=== PATIENT | female | born 1995 | race Caucasian/White ===

== ENCOUNTER → 2020-01-26 16:51 | Outpatient (CLI) | payer BC, SELFPAY | PROVIDERS: Visit Provider Nurse Practitioner | DX: J02.9 Acute pharyngitis, unspecified (principal) | CPT/HCPCS: 87070; 87077; 87147; 87186 ==

== ENCOUNTER 2020-10-16 20:57 | Emergency (ER) | payer BC, SELFPAY ==
[2020-10-16 21:04] VITALS: BP 136/68; PULSE 74; RESP 14; TEMP 36.5; O2SAT 100; BMI 33.8
--- NOTE | 2020-10-16 21:08 | DI.RAD.S_ITS ---
PROCEDURE: XR CHEST 1V INDICATIONS: chest pain TECHNIQUE: One view of the chest was acquired. COMPARISON: None. FINDINGS: Surgical changes and devices: None. Lungs and pleura: Lungs are clear. No pleural effusions or pneumothorax. Mediastinum: Mediastinal contours appear normal. Heart size is normal. Bones and chest wall: No suspicious bony lesions. Overlying soft tissues appear unremarkable. IMPRESSION: No acute cardiopulmonary disease. Dictated by: Bouchra Hodgson M.D. on 10/16/2020 at 21:28 Approved by: Bouchra Hodgson M.D. on 10/16/2020 at 21:28
[2020-10-16 21:52] LABS: Add Manual Diff / Slide Review NO; Basophils Absolute Auto 100 /uL (0-100); Basophils Percent Auto 1.2 % (0-2); Eosinophils Absolute Auto 200 /uL (0-450); Hematocrit 38.1 % (36-46); Hemoglobin 13.1 g/dL (12.0-16.0); Lymphocytes Absolute Auto 3800 /uL (1100-4500); Lymphocytes Percent Auto 42.8 % (25-40); Mean Corpuscular HGB Conc 34.5 % (30-36); Mean Corpuscular Volume 87.1 fL (80-100); Monocytes Absolute Auto 500 /uL (0-900); Monocytes Percent Auto 5.5 % (3-14); Neutrophils Absolute Auto 4300 /uL (1500-7000); Neutrophils Percent Auto 48.5 % (50-75); Platelet Count 235 X10^3/uL (150-400); Red Blood Cell Count 4.38 X10^6/uL (4.0-5.2); Red Cell Distribution Width 12.4 % (11.6-14.8); White Blood Cell Count 8.8 X10^3/uL (4.5-11.0)
[2020-10-16 21:58] LABS: Prothrombin Time 11.6 SECONDS (10.1-12.7)
[2020-10-16 22:01] LABS: PTT Partial Thromboplastin Tim 33 SECONDS (26.4-36.2)
[2020-10-16 22:02] LABS: Alanine Aminotransferase 21 IU/L (<35); Albumin 4.4 g/dL (3.5-5.0); Albumin Globulin Ratio 1.5 (1.0-2.8); Alkaline Phosphatase 49 U/L (38-126); Aspartate Aminotransferase 25 IU/L (14-36); BUN Creatinine Ratio 14.1 (6-22); Bilirubin Total 0.2 mg/dL (0.2-1.3); Blood Urea Nitrogen 10 mg/dL (7-17); Calcium 8.8 mg/dL (8.4-10.2); Carbon Dioxide 27 mmol/L (22-32); Chloride 105 mmol/L (98-107); Creatine Kinase 142 U/L (30-135); Estimated Glomerular Filt Rate > 60.0 mL/min (>60); Globulin 2.9 g/dL (1.7-4.1); Glucose 118 mg/dL (70-100); HEMOLYSIS < 15 (0-50); Lipase 111 U/L (23-300); Potassium 3.7 mmol/L (3.4-5.1); Sodium 139 mmol/L (137-145); Total Protein 7.3 g/dL (6.3-8.2)
[2020-10-16 22:13] LABS: Troponin I < 0.012 ng/mL (0.01-0.034)
[2020-10-16 22:15] VITALS: BP 129/75; PULSE 68; RESP 18; O2SAT 99
[2020-10-16 22:17] LABS: CKMB % Relative Index 0.4 % (1.5-5.0)
--- NOTE | 2020-10-16 23:53 | ED.CHESTPAIN ---
HPI - Chest Pain General Chief Complaint: Chest Pain Stated Complaint: chest pain lt arm pain Time Seen by Provider: 10/16/20 23:05 Source: patient Mode of arrival: Ambulatory Limitations: no limitations History of Present Illness HPI narrative: 24-year-old woman presents with left-sided chest pain radiating up into the shoulder in today was going down her arm as well. She describes no orthopnea, dyspnea or diaphoresis with the pain. It is not activity related. She does note that she has had more stressors in her life recently and has just given notice to quit her job. She denies nausea, vomiting, cough, abdominal pain, diarrhea. Related Data Previous Rx's Medication Instructions Recorded amoxicillin 875 mg-potassium 1 tab PO BID #20 tab 01/28/20 clavulanate 125 mg tablet Allergies Allergy/AdvReac Type Severity Reaction Status Date / Time No Known Drug Allergies Allergy Verified 10/16/20 21:06 Review of Systems Review of Systems Narrative: Remainder of complete review of systems is otherwise unremarkable except for that included in the HPI. Patient History Social History Smoking Status: Unknown if ever smoked Smoking Status: Unknown if ever smoked alcohol intake frequency: holidays/special occasions only Substance Use Type: does not use Exam Narrative Exam Narrative: General: Healthy appearing, in no acute distress. Able to give a complete and coherent history. Well-nourished well-developed HEENT: Moist mucous membranes, normal sclera with reactive pupils, Neck: No JVD, supple, moderate trapezius muscle spasm on the left side. Respiratory: Lungs are clear to auscultation, no wheezing no rales no rhonchi. Full and symmetrical air movement Chest: Mild tenderness along the left sternal border at costochondral margins Cardiac: Regular rate and rhythm no murmurs no bruits Abdomen: Soft, nontender, good bowel tones, no flank pain Skin: Warm and dry, no rashes Neurologic: Grossly neurologically intact with no obvious asymmetries or abnormalities Extremities: No trauma, well perfused Psych: Cooperative, appropriate insight and affect Initial Vital Signs Initial Vital Signs: Vital Signs Temperature 97.7 F 10/16/20 21:04 Pulse Rate 74 10/16/20 21:04 Respiratory Rate 14 10/16/20 21:04 Blood Pressure 136/68 10/16/20 21:04 Pulse Oximetry 100 05/13/21 21:04 Course Orders Ordered: ED Orders 10/16/20 21:08 XR chest 1V Stat EKG-12 Lead Stat 10/16/20 21:39 Complete Blood Count AUTO DIFF Stat Comprehensive Metabolic Panel Stat Lipase Stat Partial Thromboplastin Time Stat Prothrombin Time INR Stat Troponin & CK Cardiac Panel Stat Vital Signs Vital signs: Vital Signs - 8 hr 10/16/20 21:04 10/16/20 22:15 10/17/20 00:12 Temperature 97.7 F Pulse Rate 74 68 74 Respiratory Rate 14 18 16 Blood Pressure 136/68 129/75 121/73 Pulse Oximetry 100 99 97 MDM - Chest Pain Medical Records Data Attestation: I reviewed the patient's medical records. Lab Data Attestation: I reviewed the patient's lab results. Result diagrams: 10/16/20 21:39 10/16/20 21:39 Labs: Lab Results 10/16/20 10/16/20 10/16/20 Range/Units 21:39 21:39 21:39 WBC 8.8 (4.5-11.0) X10^3/uL RBC 4.38 (4.0-5.2) X10^6/uL Hgb 13.1 (12.0-16.0) g/dL Hct 38.1 (36-46) % MCV 87.1 (80-100) fL MCH 30.0 (26-34) PG MCHC 34.5 (30-36) % RDW 12.4 (11.6-14.8) % Plt Count 235 (150-400) X10^3/uL Neut % (Auto) 48.5 L (50-75) % Lymph % (Auto) 42.8 H (25-40) % [place] % (Auto) 5.5 (3-14) % Eos % (Auto) 2.0 (2-4) % Baso % (Auto) 1.2 (0-2) % Neut # (Auto) 4300 (8258-6221) /uL Lymph # (Auto) 3800 (3267-8081) /uL [place] # (Auto) 500 (0-900) /uL Eos # (Auto) 200 (0-450) /uL Baso # (Auto) 100 (0-100) /uL PT 11.6 (10.1-12.7) SECONDS INR 1.0 (0.9-1.3) APTT 33 (26.4-36.2) SECONDS Sodium 139 (137-145) mmol/L Potassium 3.7 (3.4-5.1) mmol/L Chloride 105 (98-107) mmol/L Carbon Dioxide 27 (22-32) mmol/L BUN 10 (7-17) mg/dL Creatinine 0.71 (0.52-1.04) mg/dL Estimated GFR > 60.0 (>60) mL/min BUN/Creatinine Ratio 14.1 (6-22) Glucose 118 H (70-100) mg/dL Calcium 8.8 (8.4-10.2) mg/dL Total Bilirubin 0.2 (0.2-1.3) mg/dL AST 25 (14-36) IU/L ALT 21 (<35) IU/L Alkaline Phosphatase 49 (38-126) U/L Total Creatine Kinase 142 H (30-135) U/L CK-MB (CK-2) 0.60 (<2.37) ng/mL CK-MB (CK-2) Rel Index 0.4 L (1.5-5.0) % Troponin I < 0.012 (0.01-0.034) ng/mL Total Protein 7.3 (6.3-8.2) g/dL Albumin 4.4 (3.5-5.0) g/dL Globulin 2.9 (1.7-4.1) g/dL Albumin/Globulin Ratio 1.5 (1.0-2.8) Lipase 111 (23-300) U/L Imaging Data Chest x-ray: Radiologist's Impression: FINDINGS: Surgical changes and devices: None. Lungs and pleura: Lungs are clear. No pleural effusions or pneumothorax. Mediastinum: Mediastinal contours appear normal. Heart size is normal. Bones and chest wall: No suspicious bony lesions. Overlying soft tissues appear unremarkable. IMPRESSION: No acute cardiopulmonary disease. Dictated by: Bouchra Hodgson M.D. on 10/16/2020 at 21:28 ECG Data Attestation: I personally reviewed and interpreted this ECG as follows: Interpretation: Normal sinus rhythm at a rate of 70 Normal axis normal intervals No acute ischemic changes MDM Narrative Medical decision making narrative: 24-year-old woman presents with intermittent episodes of left-sided chest wall pain and trapezius muscle spasm with radiation down her arm. This all seems to be musculoskeletal and related to both stress as well as some way she is continually holding in using her cellphone. There is no evidence of infection, pneumothorax, pulmonary embolism, acute coronary syndrome. Findings are reviewed with patient. Recommended nonsteroidal use and pointed out the correlation between how she is holding her cell phone and the increase trapezius muscle spasm and tire elevation of left shoulder girdle. Questions are answered. Discharge Plan Departure Patient Disposition: Home Clinical Impression: Costochondritis, Trapezius muscle spasm Instructions: DI for Costochondritis Activity Restrictions/Additional Instructions: Thank you for coming in today Your blood work, EKG and x-ray were all very reassuring Under clinical exam, with the bit of tenderness along the left side of your breast bone, I suspect that you have mild costal chondritis. In examining your neck and her shoulder, your trapezius muscle is quite tight and I suspect it is pinching some of the nerves going down your arm to explain the sensation going down your arm. These muscles are very sensitive distress a and holding our phones in the same hand in a hunched over position puts extra stress on those muscles. I challenged you to keep your phone in your right hand rather than your left hand for the next 2-3 days and see if that helps her neck pain. Using 400 mg of ibuprofen (2 [id number] pills) and 1 Tylenol every 6 hours can be very helpful in controlling pain. If you have worsening symptoms, please feel free to return to the ER Prescriptions: No Action amoxicillin-pot clavulanate [Augmentin] 875-125 mg tablet 1 tab PO BID Qty: 20 RF: 0
[2020-10-17 00:12] VITALS: BP 121/73; PULSE 74; RESP 16; O2SAT 97
== END 2020-10-17 00:13 | disposition home or self-care (01) ==
PROVIDERS: Emergency Provider Emergency Medicine
DX: M94.0 Chondrocostal junction syndrome [Tietze] (principal); M62.838 Other muscle spasm
CPT/HCPCS: 36415; 71045; 80053; 82550; 82553; 83690; 84484; 85025; 85610; 85730; 93005; 93010; 99281; 99284